=== PATIENT | male | born 1995 | race Caucasian/White ===

== ENCOUNTER 2017-09-27 14:16 | Emergency (ER) | payer SELFPAY ==
[~2017-09-27] VITALS: Ht 162.6 cm; Wt 63.5 kg
--- NOTE | 2017-09-27 14:29 | NUR ---
Patient discharged to home in stable conditon. Written and verbal after care instructions given. Patient verbalizes understanding of instructions.
== END 2017-09-27 14:33 | disposition home or self-care (01) ==
LOC: ER 14:16
DX: T23.111A Burn of first degree of right thumb (nail), initial encounter (principal); X58.XXXA Exposure to other specified factors, initial encounter; Y93.89 Activity, other specified; Y92.89 Other specified places as the place of occurrence of the external cause; Y99.8 Other external cause status
CPT/HCPCS: 99281; A4663